=== PATIENT | female | born 1980 | race Caucasian/White ===

== ENCOUNTER 2018-01-21 14:10 | Emergency (ER) | payer MEDICAID ==
[~2018-01-21] VITALS: Ht 167.6 cm; Wt 101.0 kg
[2018-01-21 14:13] VITALS: BP 133/85
[2018-01-21] MEDS ORDERED: CLIN300C85 PO (15:18)
[2018-01-21] MEDS ORDERED: ACET-3068 PO (15:18)
== END 2018-01-21 15:29 | disposition home or self-care (01) ==
LOC: ER 14:11
DX: K02.9 Dental caries, unspecified (principal); K08.89 Other specified disorders of teeth and supporting structures; F17.200 Nicotine dependence, unspecified, uncomplicated; Z79.899 Other long term (current) drug therapy
CPT/HCPCS: 99283